=== PATIENT | male | born 1965 | race Caucasian/White ===

== ENCOUNTER 2022-02-16 13:38 | Inpatient (IN) | payer OTHER ==
[2022-02-16] MEDS ORDERED: SODIUM CHLORIDE 0.9% 500 ML INFUS.BAG IV ONE (15:47)
[2022-02-16 16:53] LABS: CHLORIDE 101 mmol/L (98-107); SODIUM 139 mmol/L (136-145)
[2022-02-16 16:56] LABS: ALBUMIN 3.5 g/dl (3.4-5.0); ANION GAP 8 MMOL/L (8-16); CALCIUM 8.2 mg/dL (8.5-10.1); CO2 30 mmol/L (21-32); GLUCOSE,RANDOM 85 mg/dL (74-106); MAGNESIUM 1.8 mg/dL (1.8-2.4)
[2022-02-16 16:57] LABS: BASO % 0.2 % (0-2.0); EOS % 0.1 % (0-4.5); HEMATOCRIT 35.2 % (35.4-49); LYMPH % 5.7 % (8-40); MCH 32.2 pg (25.7-33.7); MCHC 34.2 g/dl (32.0-35.9); MEAN CELL VOLUME 94.2 fl (80-96); MONO % 5.6 % (3.8-10.2); NEUT % 88.4 % (42.8-82.8); PLATELET COUNT 176 10^3/uL (134-434); RBC 3.74 M/mm3 (4.00-5.60); RDW 16.7 % (11.9-15.9); WHITE BLOOD COUNT 8.3 K/mm3 (4.0-10.0)
[2022-02-16 16:59] LABS: CREATININE 1.2 mg/dL (0.55-1.3); SGOT/AST 567 U/L (15-37); SGPT/ALT 358 U/L (13-61)
[2022-02-16 17:00] LABS: TOT PROT 6.4 g/dl (6.4-8.2)
[2022-02-16 17:01] LABS: BILIRUBIN,TOTAL 2.4 mg/dL (0.2-1)
[2022-02-16 17:02] LABS: ALK PHOS 176 U/L (45-117)
[2022-02-16 17:33] LABS: ACTIVATED PTT 30.4 SECONDS (25.2-36.5); INR 1.13 (0.83-1.09)
[2022-02-16] MEDS ORDERED: PATIENT'S OWN MEDICATION (NON-FORMULARY) (Metaxalone [Skelaxin] 800 MG Tablet) PO PRN (23:27)
[2022-02-17 00:07] LABS: BLOOD UREA NITROGEN 21.3 mg/dL (7-18); CALCIUM 7.8 mg/dL (8.5-10.1)
[2022-02-17 00:11] LABS: CREATININE 1.2 mg/dL (0.55-1.3)
[2022-02-17 00:12] LABS: BILIRUBIN,TOTAL 3.6 mg/dL (0.2-1); TOT PROT 5.6 g/dl (6.4-8.2)
[2022-02-17 01:32] VITALS: BMI 32.7
[2022-02-17] MEDS: INSULIN SLIDING SCALE (NOVOLOG) 1 VIAL SQ SCH ×4 (06:30→21:29)
[2022-02-17] MEDS: INSULIN (NOVOLOG) ASPART 100 UNITS/ML 10ML VIAL SQ SCH ×3 (07:26→17:20)
[2022-02-17] MEDS ORDERED: CYCLOBENZAPRINE HCL 10 MG TABLET (FP) PO PRN (07:30)
[2022-02-17] MEDS ORDERED: CYCLOBENZAPRINE HCL 5 MG TABLET PO PRN (08:32)
[2022-02-17] MEDS ORDERED: PATIENT'S OWN MEDICATION (NON-FORMULARY) (Insulin Aspart [Novolog Flexpen] 100 UNIT/ML Ins SQ SCH (10:00)
[2022-02-17] MEDS ORDERED: FAMOTIDINE 20 MG TABLET PO SCH (10:00)
[2022-02-17] MEDS ORDERED: PATIENT'S OWN MEDICATION (NON-FORMULARY) (Cabozantinib S-Malate [Cabometyx] 40 MG Tablet) PO SCH (10:00)
[2022-02-17] MEDS: oxyCODONE HCL 20 MG SUSTAINED ACTING TABLET PO SCH ×2 (10:04→21:29)
[2022-02-17 10:08] LABS: BASO % 0.3 % (0-2.0); EOS % 1.2 % (0-4.5); HEMATOCRIT 35.8 % (35.4-49); LYMPH % 8.6 % (8-40); MCH 31.9 pg (25.7-33.7); MCHC 33.6 g/dl (32.0-35.9); MEAN CELL VOLUME 94.8 fl (80-96); MEAN PLT VOLUME 8.1 fl (7.5-11.1); NEUT % 82.9 % (42.8-82.8); PLATELET COUNT 144 10^3/uL (134-434); RBC 3.78 M/mm3 (4.00-5.60); RDW 16.7 % (11.9-15.9); WHITE BLOOD COUNT 5.4 K/mm3 (4.0-10.0)
[2022-02-17] MEDS: ESCITALOPRAM OXALATE 10 MG TABLET PO SCH (10:08)
[2022-02-17] MEDS: CYANOCOBALAMIN 1,000 MCG TABLET (FP) PO SCH (10:08)
[2022-02-17] MEDS: ENOXAPARIN NA (PORCINE) 40 MG/0.4 ML DISP.SYRIN SQ SCH (10:09)
[2022-02-17] MEDS: INSULIN (LEVEMIR) 100 UNITS/ML UNITS SQ SCH ×2 (10:09→21:27)
[2022-02-17] MEDS: lamoTRIgine 25 MG TABLET PO SCH ×2 (10:13→21:27)
[2022-02-17 10:36] LABS: ALBUMIN 3.1 g/dl (3.4-5.0); BLOOD UREA NITROGEN 17.6 mg/dL (7-18); CALCIUM 8.4 mg/dL (8.5-10.1)
[2022-02-17 10:38] LABS: BILIRUBIN,DIRECT 3.7 mg/dL (0.0-0.2)
[2022-02-17 10:39] LABS: TOT PROT 5.7 g/dl (6.4-8.2)
[2022-02-17 10:41] LABS: BILIRUBIN,TOTAL 4.7 mg/dL (0.2-1)
[2022-02-17 11:28] LABS: URINE APPEARANCE CLEAR; URINE BILIRUBIN 2+ (NEGATIVE); URINE COLOR DK YELLOW; URINE GLUCOSE (UA) NEGATIVE (NEGATIVE); URINE KETONE NEGATIVE (NEGATIVE); URINE LEUK ESTERASE NEGATIVE (NEGATIVE); URINE NITRITE NEGATIVE (NEGATIVE); URINE PROTEIN NEGATIVE (NEGATIVE); URINE UROBILINOGEN >=8.0 E.U./dl mg/dL (0.2-1.0)
[2022-02-17 11:55] LABS: PHENCYCLIDINE,URINE NEGATIVE (NEGATIVE); URINE BARBITURATES NEGATIVE (NEGATIVE)
[2022-02-17 11:56] LABS: COCAINE, UR NEGATIVE (NEGATIVE); METHADONE, UR NEGATIVE (NEGATIVE); URINE BENZODIAZEPINES NEGATIVE (NEGATIVE)
[2022-02-17 12:00] LABS: OPIATES, URI POSITIVE (NEGATIVE); URINE AMPHETAMINES NEGATIVE (NEGATIVE)
[2022-02-17 14:40] LABS: INR 1.67 (0.83-1.09); PROTHROMBIN TIME (PATIENT) 19.3 SEC (9.7-13.0)
[2022-02-17 14:43] LABS: ACTIVATED PTT 37.5 SECONDS (25.2-36.5)
[2022-02-18] MEDS: INSULIN (NOVOLOG) ASPART 100 UNITS/ML 10ML VIAL SQ SCH ×3 (06:27→17:04)
[2022-02-18] MEDS: INSULIN SLIDING SCALE (NOVOLOG) 1 VIAL SQ SCH ×4 (06:27→21:47)
[2022-02-18 08:09] LABS: BASO % 0.4 % (0-2.0); EOS % 1.4 % (0-4.5); HEMATOCRIT 33.8 % (35.4-49); HEMOGLOBIN 11.5 GM/dL (11.7-16.9); LYMPH % 14.7 % (8-40); MCH 32.1 pg (25.7-33.7); MCHC 34.1 g/dl (32.0-35.9); MEAN PLT VOLUME 8.2 fl (7.5-11.1); MONO % 6.9 % (3.8-10.2); NEUT % 76.6 % (42.8-82.8); PLATELET COUNT 137 10^3/uL (134-434); RDW 16.2 % (11.9-15.9); WHITE BLOOD COUNT 3.7 K/mm3 (4.0-10.0)
[2022-02-18 08:18] LABS: INR 1.31 (0.83-1.09); PROTHROMBIN TIME (PATIENT) 15.1 SEC (9.7-13.0)
[2022-02-18 08:30] LABS: CALCIUM 8.3 mg/dL (8.5-10.1)
[2022-02-18 08:31] LABS: ALBUMIN 2.8 g/dl (3.4-5.0); BLOOD UREA NITROGEN 10.6 mg/dL (7-18)
[2022-02-18 08:33] LABS: BILIRUBIN,DIRECT 3.6 mg/dL (0.0-0.2); CREATININE 0.8 mg/dL (0.55-1.3)
[2022-02-18 08:35] LABS: TOT PROT 5.5 g/dl (6.4-8.2)
[2022-02-18] MEDS: CYANOCOBALAMIN 1,000 MCG TABLET (FP) PO SCH (09:32)
[2022-02-18] MEDS: oxyCODONE HCL 20 MG SUSTAINED ACTING TABLET PO SCH ×2 (09:32→21:42)
[2022-02-18] MEDS: ENOXAPARIN NA (PORCINE) 40 MG/0.4 ML DISP.SYRIN SQ SCH (09:32)
[2022-02-18] MEDS: INSULIN (LEVEMIR) 100 UNITS/ML UNITS SQ SCH ×2 (09:41→22:14)
[2022-02-18] MEDS: ESCITALOPRAM OXALATE 10 MG TABLET PO SCH (10:15)
[2022-02-18] MEDS: lamoTRIgine 25 MG TABLET PO SCH ×2 (10:43→21:44)
[2022-02-19] MEDS: INSULIN SLIDING SCALE (NOVOLOG) 1 VIAL SQ SCH ×3 (06:07→16:34)
[2022-02-19] MEDS: INSULIN (NOVOLOG) ASPART 100 UNITS/ML 10ML VIAL SQ SCH ×3 (06:08→16:34)
[2022-02-19 07:29] VITALS: TEMP 98.7
[2022-02-19 08:19] LABS: BASO % 0.4 % (0-2.0); EOS % 2.5 % (0-4.5); HEMATOCRIT 34.4 % (35.4-49); LYMPH % 23.8 % (8-40); MCH 32.7 pg (25.7-33.7); MCHC 34.9 g/dl (32.0-35.9); MEAN CELL VOLUME 93.6 fl (80-96); MEAN PLT VOLUME 8.3 fl (7.5-11.1); MONO % 8.2 % (3.8-10.2); NEUT % 65.1 % (42.8-82.8); PLATELET COUNT 132 10^3/uL (134-434); RBC 3.68 M/mm3 (4.00-5.60); WHITE BLOOD COUNT 3.4 K/mm3 (4.0-10.0)
[2022-02-19 08:24] LABS: INR 1.18 (0.83-1.09); PROTHROMBIN TIME (PATIENT) 13.6 SEC (9.7-13.0)
[2022-02-19 08:29] LABS: CALCIUM 8.2 mg/dL (8.5-10.1)
[2022-02-19 08:32] LABS: CREATININE 0.9 mg/dL (0.55-1.3)
[2022-02-19 08:55] LABS: ALBUMIN 2.6 g/dl (3.4-5.0); BILIRUBIN,TOTAL 1.7 mg/dL (0.2-1); MAGNESIUM 2.1 mg/dL (1.8-2.4); TOT PROT 5.3 g/dl (6.4-8.2)
[2022-02-19 08:58] LABS: BILIRUBIN,DIRECT 1.3 mg/dL (0.0-0.2)
[2022-02-19] MEDS: ESCITALOPRAM OXALATE 10 MG TABLET PO SCH (11:15)
[2022-02-19] MEDS: CYANOCOBALAMIN 1,000 MCG TABLET (FP) PO SCH (11:15)
[2022-02-19] MEDS: lamoTRIgine 25 MG TABLET PO SCH (11:16)
[2022-02-19] MEDS: oxyCODONE HCL 20 MG SUSTAINED ACTING TABLET PO SCH (11:16)
[2022-02-19] MEDS: ENOXAPARIN NA (PORCINE) 40 MG/0.4 ML DISP.SYRIN SQ SCH (11:16)
[2022-02-19] MEDS: INSULIN (LEVEMIR) 100 UNITS/ML UNITS SQ SCH (11:23)
[2022-02-19 13:17] VITALS: BP 122/64; PULSE 68
== END 2022-02-19 16:50 | disposition home or self-care (01) | DRG 445 ==
LOC: JER 13:38 → JERBED 21:30 → J5S 02-17 01:17
PROVIDERS: ADMIT Hospitalist; ATTEND Internal Medicine
DX: K80.20 Calculus of gallbladder without cholecystitis without obstruction (principal); C64.9 Malignant neoplasm of unspecified kidney, except renal pelvis; F11.20 Opioid dependence, uncomplicated; G93.40 Encephalopathy, unspecified; K71.9 Toxic liver disease, unspecified; K75.89 Other specified inflammatory liver diseases; R74.01 Elevation of levels of liver transaminase levels; T50.905A Adverse effect of unspecified drugs, medicaments and biological substances, initial encounter; Y92.89 Other specified places as the place of occurrence of the external cause; E11.9 Type 2 diabetes mellitus without complications
CPT/HCPCS: 36415; 70450-TC; 71250-TC; 72125-TC; 72131-TC; 73590-TC-LT-FY; 73590-TC-RT-FY; 73610-TC-LT-FY; 73630-TC-LT; 74176-TC; 74181-TC; 76705-TC; 77074-TC-FY; 80048; 80053; 80076; 80175; 80307; 81003; 82140; 82150; 82248; 82550; 82553; 82728; 82962; 82977; 83516; 83540; 83550; 83690; 83735; 84443; 84484; 85025; 85610; 85730; 86038; 86704; 86708; 86803; 86850; 86900; 86901; 87340; 87517; 93005; 93010; 97116-GP; 97161-GP; 99285-25; C9803-CS; U0003; U0005